=== PATIENT | male | born 1970 | race American Indian/Alaskan Native ===

== ENCOUNTER 2016-11-28 10:00 | Inpatient (IN) | payer SELFPAY ==
[2016-11-28] MEDS ORDERED: ZOFRAN IV ONE (10:42)
[2016-11-28] MEDS ORDERED: MORPHINE IV ONE ×2 (10:42→11:00)
[2016-11-28 11:05] LABS: Basophils % (Auto) 0.7 % (0.0-1.8); Eosinophils % (Auto) 2.4 % (0.0-4.3); Hemoglobin 13.9 gm/dl (11.8-15.2); Mean Corpuscular HGB Conc 33 % (32-34); Mean Corpuscular Hemoglobin 27 pg (28-32); Mean Corpuscular Volume 83 fl (84-94); Platelet Count 246 K/mm3 (140-440); Red Blood Count 5.08 M/mm3 (3.65-5.03); Red Cell Distribution Width 13.9 % (13.2-15.2); White Blood Count 7.2 K/mm3 (4.5-11.0)
[2016-11-28 11:15] LABS: Anion Gap 18 mmol/L; BUN/Creatinine Ratio 14.54; Blood Urea Nitrogen 16 mg/dL (9-20); Calcium 9.8 mg/dL (8.4-10.2); Carbon Dioxide 27 mmol/L (22-30); Chloride 101.1 mmol/L (98-107); Glucose 89 mg/dL (75-100); Potassium 4.5 mmol/L (3.6-5.0); Sodium 142 mmol/L (137-145)
--- NOTE | 2016-11-28 11:34 | Emergency Department Report ---
HPI - General Chief Complaint: Abdominal Pain Time Seen by Provider: 11/28/16 10:36 - HPI HPI: Chief complaint: Left inguinal hernia pain HPI: Patient is a 46-year-old -[place] male history of left inguinal hernia for several years states that on Monday began having pain and swelling. He should states usually when it comes out is able to lay down and it goes back in on its own. Patient states it is not gone back in and the pain increased while he was at work today. Mode of arrival: EMS Source: Patient Began: Monday Duration: See above Context: See above Quality: Sharp Severity: 10 out of 10 Improved with: Nothing Worsened with: Walking and palpation Associated signs and symptoms: Patient denies fever, nausea, vomiting or abdominal distention. Patient states he feels like he needs to defecate but is unable to. ED Past Medical Hx - Past Medical History Previous Medical History?: Yes Additional medical history: Left inquinal hernia/pain - Surgical History Past Surgical History?: No - Social History Smoking Status: Never Smoker Substance Use Type: Alcohol, Prescribed - Medications Home Medications: Home Medications Medication Instructions Recorded Confirmed Last Taken Type No Known Home Medications [No 11/28/16 11/28/16 Unknown History Reported Home Medications] ED Review of Systems ROS: Stated complaint: ABD PAIN/HX OF HERNIA Other details as noted in HPI ROS Constitutional: No fever ENT: No uri symptoms Cardiovascular: No chest pain Respiratory: No sob or cough GI: No nausea vomiting or diarrhea : No dysuria frequency or urgency, Skin: No rash Neuro: No focal weakness or numbness Psych: No depression Jose/lymph: No edema Physical Exam - Physical Exam Vital Signs: Vital Signs 11/28/16 11/28/16 11/28/16 10:03 10:33 10:39 Temperature 99 F 98.8 F Pulse Rate 68 78 Respiratory 20 15 Rate Blood Pressure 111/77 Blood Pressure 122/71 [Left] O2 Sat by Pulse 100 100 100 Oximetry 11/28/16 10:41 Temperature Pulse Rate Respiratory 15 Rate Blood Pressure Blood Pressure [Left] O2 Sat by Pulse 100 Oximetry Physical Exam: GENERAL: The patient is well-developed well-nourished . HEENT: Normocephalic. Atraumatic. Extraocular motions are intact. Patient has moist mucous membranes. NECK: Supple. No meningitic signs are noted. There is no adenopathy noted. CHEST/LUNGS: Clear to auscultation. There is no respiratory distress noted. HEART/CARDIOVASCULAR: Regular. There is no tachycardia. There is no gallop rub or murmur. ABDOMEN: Abdomen is soft, nontender. Left inguinal hernia tender to palpation. Patient has normal bowel sounds. There is no abdominal distention. SKIN: There is no rash. There is no edema. There is no diaphoresis. NEURO: The patient is awake, alert, and oriented. The patient is cooperative. The patient has no focal neurologic deficits. The patient has normal speech. MUSCULOSKELETAL: There is no tenderness or deformity. There is no limitation range of motion. There is no evidence of acute injury.m ED Course Vital Signs 11/28/16 11/28/16 11/28/16 10:03 10:33 10:39 Temperature 99 F 98.8 F Pulse Rate 68 78 Respiratory 20 15 Rate Blood Pressure 111/77 Blood Pressure 122/71 [Left] O2 Sat by Pulse 100 100 100 Oximetry 11/28/16 10:41 Temperature Pulse Rate Respiratory 15 Rate Blood Pressure Blood Pressure [Left] O2 Sat by Pulse 100 Oximetry - Reevaluation(s) Reevaluation #2: 11/28/16 11:34 Patient was given 10 mg of IV morphine 4 mg of Zofran and placed in Trendelenburg. Several attempts were made to reduce his hernia that were unsuccessful. Discussed with Dr. Johnson who requested CT with oral and IV contrast. ED Medical Decision Making - Lab Data Result diagrams: 11/28/16 Unknown 11/28/16 Unknown Urinalysis within normal limits. - Radiology Data interpreted by me: CT scan shows incarcerated left inguinal hernia Critical care attestation.: If time is entered above; I have spent that time in minutes in the direct care of this critically ill patient, excluding procedure time. ED Disposition Clinical Impression: Incarcerated left inguinal hernia Disposition: OP ADMITTED IP TO THIS HOSP Is pt being admited?: Yes Does the pt Need Aspirin: No Condition: Fair Time of Disposition: 14:04 (admit to Dr. Johnson)
[2016-11-28 13:02] LABS: Bilirubin,Urine NEG (Negative); Blood,Urine NEG (Negative); Ketones,Urine NEG (Negative); Leukocyte Esterase,Urine NEG (Negative); Mucus,Urine FEW /HPF; Nitrite,Urine NEG (Negative); Protein,Urine <15 mg/dL mg/dL (Negative); Urobilinogen,Urine < 2.0 mg/dL (<2.0)
[2016-11-28] MEDS ORDERED: ZOSYN/NS 4.5GM/100ML 100 ML IV ONE (14:00)
[2016-11-28] MEDS ORDERED: NACL 0.9% 1000 ML IV ONE (14:01)
--- NOTE | 2016-11-28 14:10 | Cat Scan Report ---
CT abdomen and pelvis with contrast: History: Abdominal pain and incarcerated left inguinal hernia. Transverse images are obtained from the lower chest to the ischium with coronal and sagittal 2-D reformatted images. The visualized lungs are normal. Multiple subcentimeter hypodense nodules are present throughout the right lobe of the liver in a single finding in the left lobe. The stomach is distended with a mixture of oral contrast and other fluid. There is no contrast distal to the stomach in the small bowel. There is a subcentimeter sized nonobstructing calculus in the central right kidney. The abdominal and retroperitoneal organs are otherwise unremarkable. The abdominal aorta is normal in size and contour. The unopacified small bowel is generally unremarkable with exception of a couple of very slightly dilated fluid-filled loops in the mid pelvis. The colon is not dilated. A loop of sigmoid colon however is herniated through a left inguinal hernia. There is no obvious bowel wall edema. No apparent large bowel obstruction. The approximate width of the hernia opening is 3 cm. There is no evidence of free fluid or localized fluid nor is there any free air identified. A small fat containing umbilical hernia is also present. Impressions: 1. Nonobstructing left inguinal hernia containing loop of sigmoid colon. By history this is nonreducible indicating that it most likely is incarcerated. 2. Nonobstructing small right renal calculus. 3. Numerous small liver cysts.
[2016-11-28] MEDS ORDERED: ZEMURON IV ONE ×2 (15:39→16:29)
[2016-11-28] MEDS ORDERED: DIPRIVAN 10 MG/ML IV ONE (15:39)
[2016-11-28] MEDS ORDERED: XYLOCAINE MPF 2% ONE (15:39)
[2016-11-28] MEDS ORDERED: SUBLIMAZE ONE (15:39)
[2016-11-28] MEDS ORDERED: VERSED ONE (15:46)
[2016-11-28] MEDS ORDERED: PEPCID IV ONE (15:47)
--- NOTE | 2016-11-28 15:48 | Anesthesia Consultation ---
Anesthesia Consult and Med Hx Date of service: 11/28/16 - Airway Anesthetic Teeth Evaluation: Good ROM Head & Neck: Adequate Mental/Hyoid Distance: Adequate Mallampati Class: Class II Intubation Access Assessment: Good - Pulmonary Exam CTA: Yes - Cardiac Exam Cardiac Exam: No Murmur - Pre-Operative Health Status ASA Pre-Surgery Classification: ASA2 Proposed Anesthetic Plan: General
[2016-11-28] MEDS ORDERED: DILAUDID IV PRN (15:49)
--- NOTE | 2016-11-28 15:49 | Anesthesia Day of Surgery ---
Anesthesia Day of Surgery - Day of Surgery Patient Examined: Yes Patient H&P Reviewed: Yes Patient is NPO: Yes
[2016-11-28] MEDS ORDERED: QUELICIN ONE ×2 (15:59→16:14)
[2016-11-28] MEDS ORDERED: DILAUDID ONE (16:13)
[2016-11-28] MEDS ORDERED: ROBINUL ONE (16:14)
[2016-11-28] MEDS ORDERED: BLOXIVERZ ONE (16:14)
[2016-11-28] MEDS ORDERED: ZOFRAN ONE (16:14)
[2016-11-28] MEDS ORDERED: DECADRON ONE (16:14)
[2016-11-28] MEDS ORDERED: TORADOL ONE (16:32)
[2016-11-28] MEDS ORDERED: LACTATED RINGERS 2,000 ML ONE (16:58)
[2016-11-28] MEDS ORDERED: NORCO 5/325 PO PRN (17:10)
[2016-11-28] MEDS ORDERED: ZOFRAN IV PRN (17:10)
[2016-11-28] MEDS ORDERED: MORPHINE IV PRN (17:10)
[2016-11-28] MEDS ORDERED: D5/0.45NS 1,000 ML IV SCH (18:00)
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
[2016-11-28] MEDS: ANCEF/NS 1 GM/50 ML 50 ML IV SCH (18:30)
--- NOTE | 2016-11-28 19:38 | Operative Report ---
PREOPERATIVE DIAGNOSIS: Rule out incarcerated left inguinal hernia. POSTOPERATIVE DIAGNOSIS: Incarcerated sliding left inguinal hernia involving the colon. PROCEDURE: Reduction of incarcerated left inguinal hernia with primary repair using mesh. SURGEON: Franklin Johnson MD ANESTHESIA: General. ESTIMATED BLOOD LOSS: Minimal. COMPLICATIONS: None. PROCEDURE IN DETAIL: The patient is a 46-year-old gentleman who presented to the Emergency Room with recent onset of left groin pain and nonreducible inguinal hernia. A CT scan of the abdomen revealed involvement of the sigmoid colon within the hernia sac, but no signs of any small bowel involvement or obstruction. The patient was taken to surgery and placed under general anesthesia. At this point, he was placed in a steep Trendelenburg position and through a slow bimanual manipulation, I was able to reduce the hernia in its entirety. At this point, the patient was prepped and draped in usual sterile fashion. Incision was made using his landmarks, anterior superior iliac spine and pubic tubercle. Incision was carried down to the external oblique fascia. External oblique fascia was transected down to the external inguinal ring. The cord was then identified at the level of the pubic tubercle and encircled with a Milagros drain. Dissection in this area revealed a sliding hernia. The colon was able to be dissected free from the cord and returned to the peritoneal cavity. A keyhole Marlex mesh was then used to reconstruct the inguinal canal floor. The mesh was tacked to the pubic tubercle and Bacilio ligament. The medial aspect of the mesh was secured to the transversalis fascia with interrupted #1 Nurolon sutures. The lateral portion was secured to the iliopubic ____ with interrupted 0 Surgilon sutures. The area was then carefully inspected and noted to be well reconstructed. No other fascial weaknesses noted. All cord structures were intact. Ilioinguinal nerve was also identified and noted to be intact. The area was irrigated copiously and dried. Checked for hemostasis and noted to be dry. The external oblique fascia was then closed over the cord with running 3-0 Vicryl suture. Subcutaneous tissues irrigated and skin closed with claritza. A 0.5% Marcaine with epinephrine was infiltrated over the area for postoperative pain relief. A left ilioinguinal nerve block was also performed. The patient tolerated the procedure well and left OR in stable condition. JOB# [id number] AHASN/MALCOLM
[2016-11-29] MEDS: ANCEF/NS 1 GM/50 ML 50 ML IV SCH (02:19)
--- NOTE | 2016-11-29 03:33 | Admit Criteria Form ---
Admission Criteria Documentation: ABDOMINAL PAIN Clinical Indications for Admission to Inpatient Care (Place 'X' for any and all applicable criteria): Admission is indicated for ANY ONE of the following(1)(2)(3)(4)(5): [ X]I. Inpatient admission required rather than observation care (Also use Abdominal Pain: Observation Care, as appropriate) because of ANY ONE of the following: [ X]a) Severe pain requiring acute inpatient management [ ]b) Identification of etiology/finding that requires inpatient care (eg, aortic dissection, free air) [ ]c) Absent bowel sounds with complete ileus(6) [ ]d) Suspected toxic megacolon [ ]e) Severe electrolyte abnormalities requiring inpatient care [ ]f) High fever or infection requiring inpatient admission as indicated by ANY ONE of following(7)(8): [ ] i) Appropriate outpatient or observational care antimicrobial treatment unavailable, not effective, or not feasible [ ] ii) Documented bacteremia [ ] iii) Temperature > 104.9 degrees F (oral) [ ] iv) T >103.1 F (oral) or < 96.8 F(rectal) that does not respond to all emergency treatment measures [ ]g) Signs of intestinal obstruction [B] [ ]h) Hemodynamic instability [ ]i) IV fluid to replace significant ongoing losses (greater than 3 L/m2 per day) (12)(13) [ ]j) Percutaneous or open drainage (eg, abscess, biliary tract ) procedures [ ]k) Parenteral nutrition regimen that must be implemented on inpatient basis [ ]l) Other condition,treatment or monitoring requiring inpatient admission. [ ]II. Peritoneal signs present [ ]III. Surgery needed that cannot be performed on an ambulatory basis. [ ]IV. Evaluation requires patient to not eat or drink for extended period ( eg, more than 24 hours). [ ]V. Contraindications and/or Inappropriate clinical situations for Observational Care in patients with abdominal pain, when ANY ONE of the following is required: [ ]a) Thorough evaluation is required to prevent catastrophic events due to delays in diagnosing (e.g.Mesenteric ischemia) 1,3 [ ]b) Patient with severe pathology or with chronic symptoms unlikely to improve in the ED stay (3) [ ]. General contraindications and/or Inappropriate clinical situations for Observational Care in patients with abdominal pain, when ANY ONE of the following is required: [ ]a) Prediction of prolongation of LOS based on ANY ONE of the following may be considered as a contraindication for observational care 2, 3, 4, 5, 6, 7, 8, 9, 10, 11 [ ]i) Age > 65 yrs. [ ]ii) Patient arriving by ambulance [ ]iii) Patient with high acuity [ ]iv) Patient requiring vital sign monitoring [ ]v) Patient on IV medication [ ]b) Systolic blood pressures 180mmHg 3,12 [ ]c) Patient with altered mental status including delirium and other alteration of consciousness, (3) [ ]d) Patient whose discharge disposition will be to a senior care home or rehabilitation home should not be managed in Emergency Department Observation Unit. CMS rule requires 3 days hospital stay before such placement.3,13 [ ]e) Patient with failure to thrive due to broad array of etiologies 3,16,17 [ ]f) Inability to ambulate 3,14 Extended stay beyond goal length of stay may be needed for(2)(3): [ ]a) Persistent abdominal pain with suspected intra-abdominal process [ ]b) Diagnosed condition requiring continued stay (e.g., pancreatitis, complicated diverticulitis) [ ]c) Surgery (e.g., colectomy) The original [facility] content created by [employer] has been revised. The portions of the content which have been revised are identified through the use of italic text or in bold, and [facility] has neither reviewed nor approved the modified material.All other unmodified content is copyright [facility]. Please see references footnoted in the original [facility] edition 2016 Admission Criteria Met: Yes
[2016-11-29 05:27] LABS: Basophils % (Auto) 0.2 % (0.0-1.8); Hematocrit 37.7 % (35.5-45.6); Hemoglobin 12.1 gm/dl (11.8-15.2); Mean Corpuscular HGB Conc 32 % (32-34); Mean Corpuscular Hemoglobin 27 pg (28-32); Mean Corpuscular Volume 84 fl (84-94); Platelet Count 218 K/mm3 (140-440); Red Blood Count 4.51 M/mm3 (3.65-5.03); Red Cell Distribution Width 13.8 % (13.2-15.2); White Blood Count 11.7 K/mm3 (4.5-11.0)
[2016-11-29 08:29] VITALS: BP 116/66
--- NOTE | 2016-11-29 13:21 | Progress Note ---
Assessment and Plan POD #1 Pt feeling well without compl. Abd soft. + BS Dressings dry. L scrotum no evidence of pain or swelling. Surgically stable reg diet d/c today if diet evelyn rto Mon Selected Entries 11/29/16 08:00 Temperature 98.1 F Pulse Rate [ 63 From Monitor] Blood Pressure 116/66 [Left Arm] Laboratory Tests 11/29/16 05:17 WBC 11.7 H Hgb 12.1 Hct 37.7 Objective - Labs 11/29/16 05:17 11/28/16 Unknown
--- NOTE | 2016-11-29 13:23 | Discharge Summary ---
Short Stay Discharge Plan Activity: other (d/c today if solid diet evelyn. no lifting over 5 lbs x 3 wks. keep dressings dry x 5 days. surfak 1 po q am x 3. Aleve 1 tab po q 6-8 hrs for breakthrough pain. scrotal support x 3 days.) Weight Bearing Status: Partial Weight Bearing Diet: regular Wound: keep clean and dry Follow up with: VERÓNICA PRITCHARD MD [Staff Physician] - 12/05/16
--- NOTE | 2016-11-29 16:26 | Discharge Summary ---
DISCHARGE DIAGNOSIS: Incarcerated left inguinal hernia. PROCEDURE WHILE IN HOSPITAL EMERGENCY: Reduction and repair of left inguinal hernia. HOSPITAL COURSE: The patient is a 46-year-old healthy gentleman who presented to the Emergency Room with a chief complaint of left groin pain. Physical exam at that time as per the ER physician revealed a nonreducible left groin mass. A CT scan was performed, which was consistent with an incarcerated inguinal hernia involving the sigmoid colon. The patient's past medical is essentially negative. At this time, the patient was taken to surgery where indeed a sliding incarcerated left inguinal hernia was noted, which involves the sigmoid colon. Fortunately, hernia was able to be reduced under anesthesia prior to exploration. The hernia was repaired without incident. Currently, the patient is postop day #1, afebrile and feeling well. His abdomen is soft and nontender. Dressings are dry. Groin shows no evidence of edema or tenderness. The patient will thus be started on a regular diet this morning and will tentatively be discharged today if his diet is well tolerated. The patient has been instructed to call me immediately if he has any evidence of nausea, vomiting, abdominal pain, or fever. If not, the patient will follow up in the office on Monday. Instructions have also been reviewed with the patient about keeping his dressings dry for the next 5 days and also no heavy lifting for the next 3 weeks. The patient is being discharged on Bowman as well as Surfak stool softer for the next few days. JOB# [id number] AHSAN/MALCOLM
== END 2016-11-29 16:31 | disposition home or self-care (01) | DRG 352 ==
LOC: ED 10:00 → OR 16:57 → 2B-SURG 17:11 → OBSVTOIN 11-29 10:17
PROVIDERS: ADMIT Surgery; ATTEND Surgery
PROC: 0YU60JZ Supplement Left Inguinal Region with Synthetic Substitute, Open Approach (ICD-10-PCS; principal; 2016-11-28)
DX: K40.30 Unilateral inguinal hernia, with obstruction, without gangrene, not specified as recurrent (principal); Z98.890 Other specified postprocedural states; Z72.89 Other problems related to lifestyle
CPT/HCPCS: 36415; 74177; 80048; 81001; 85025; C1781; G0378; J0330; J0690; J1100; J1170; J1885; J2250; J2270; J2405; J2543; J2704; J2710; J3010; J7030; J7120; Q9967